=== PATIENT | female | born 1945 | race Caucasian/White ===

== ENCOUNTER → 2024-12-26 | Outpatient (CLI) | payer OTHER ==
--- NOTE | 2024-12-26 13:53 | HMCIMG ---
CT HEART SAVER PROMOTIONAL HISTORY: Cardiac calcification scoring. FINDINGS: The cardiac calcification scoring is 146.7. LM = 25.0, LAD = 21.5, and RCA = 100.1 Limited examination of the heart was performed. The study is done for additional or incidental findings. IMPRESSION: Trace left pericardial fluid measuring up to 8 mm in greatest thickness near the cardiac apex. Otherwise, no additional findings.
== END | disposition home or self-care (01) ==
LOC: RAH 12:38
PROVIDERS: ATTEND Nurse Practitioner Family
DX: Z13.6 Encounter for screening for cardiovascular disorders (principal); I10 Essential (primary) hypertension
CPT/HCPCS: 75571